=== PATIENT | male | born 1980 | race African-American/Black ===

== ENCOUNTER 2017-08-26 10:22 | Emergency (ER) | payer OTHER ==
[~2017-08-26] VITALS: Ht 193 cm; Wt 141.0 kg
[2017-08-26 10:36] VITALS: TEMP 36.7; Ht 193 cm; Wt 141.0 kg
[2017-08-26 11:15] VITALS: O2SAT 96
[2017-08-26 11:18] LABS: BASO % 0.4 %; BASO ABS # 0.04 K/uL (0-0.2); EOS % 2.1 %; EOS ABS # 0.21 K/uL (0-0.5); HEMATOCRIT 42.5 % (42-52); IG# 0.03 K/uL (0.00-0.02); LYMPH % 14.9 %; LYMPH ABS # 1.48 K/uL (1.2-3.4); MEAN CELL VOLUME 79.6 fL (80-100); MEAN CORPUSCULAR HEMOGLOBIN 28.1 pg (25-34); MEAN CORPUSCULAR HGB CONC 35.3 g/dl (32-36); MEAN PLATELET VOLUME 10.6 fL (7.4-10.4); MONO % 14.2 %; MONO ABS # 1.41 K/uL (0.11-0.59); NEUT % 68.1 %; NEUT ABS # 6.77 K/uL (1.4-6.5); PLATELET COUNT 194 K/uL (130-400); RED CELL DISTRIBUTION WIDTH CV 12.3 % (11.5-14.5); RED CELL DISTRIBUTION WIDTH SD 35.5 fL (36.4-46.3); WHITE BLOOD COUNT 9.94 K/uL (4.8-10.8)
--- NOTE | 2017-08-26 11:30 | DIAGNOSTIC IMAGING REPORT ---
CHEST ONE VIEW PORTABLE CLINICAL HISTORY: Pain with inspiration on L side, hemoptysis pain. Hemoptysis. COMPARISON STUDY: No previous studies for comparison. FINDINGS: Parenchymal infiltrate left base. Lungs otherwise appear clear. Diaphragms smooth. IMPRESSION: Infiltrate left base. The above report was generated using voice recognition software. It may contain grammatical, syntax or spelling errors. Electronically signed by: Arnav Farooq M.D. 08/26/2017 11:29 AM Dictated Date/Time: 08/26/2017 11:28 AM
[2017-08-26 11:37] LABS: ALBUMIN 3.8 gm/dl (3.4-5.0); ALT/SGPT 29 U/L (12-78); AST/SGOT 20 U/L (15-37); BLOOD UREA NITROGEN 13 mg/dl (7-18); CALCIUM 9.1 mg/dl (8.5-10.1); CARBON DIOXIDE 28 mmol/L (21-32); GLUCOSE 81 mg/dl (70-99); SODIUM 133 mmol/L (136-145)
[2017-08-26 11:42] LABS: ALKALINE PHOSPHATASE 60 U/L (45-117); TOTAL PROTEIN 9.1 gm/dl (6.4-8.2)
[2017-08-26] MEDS ORDERED: OPTIRAY 320 IV PRN (11:45)
--- NOTE | 2017-08-26 12:22 | DIAGNOSTIC IMAGING REPORT ---
(CHEST FOR PE) ANGIO WITH CT DOSE: 574.59 mGycm HISTORY: Chest pain dyspnea. Hemoptysis. TECHNIQUE: Multiaxial CT images of the chest were performed following the intravenous administration of contrast to evaluate the pulmonary arteries. Maximal intensity projection images were also obtained. A dose lowering technique was utilized adhering to the principles of ALARA. COMPARISON STUDY: None. FINDINGS: There is a normal caliber thoracic aorta with no evidence for dissection. There is no evidence for pulmonary embolus. No pleural effusions. No pneumothorax. The liver and spleen are unremarkable. No mediastinal or hilar lymphadenopathy. The central airways are patent. The lungs demonstrate a focal parenchymal infiltrate left lung base. Mild peripheral consolidation. Trace amount pleural fluid left base. IMPRESSION: 1. No evidence for pulmonary embolus. 2. Left lower lobe infiltrate with a trace amount of pleural fluid left base. The above report was generated using voice recognition software. It may contain grammatical, syntax or spelling errors. Electronically signed by: Arnav Farooq M.D. 08/26/2017 12:20 PM Dictated Date/Time: 08/26/2017 12:18 PM
[2017-08-26] MEDS ORDERED: ACETAMINOPHEN 325 MG TAB PO STA (12:34)
[2017-08-26] MEDS ORDERED: LEVOFLOXACIN 750 MG TAB PO STA (13:00)
--- NOTE | 2017-08-26 13:05 | EMERGENCY ROOM VISIT NOTE ---
History First contact with patient: 10:42 Chief Complaint: SHORTNESS OF BREATH Stated Complaint: PNEUMONIA Nursing Triage Summary: shortness of breath, back pain, increased bloody sputum cough. History of Present Illness The patient is a 37 year old male who presents to the Emergency Room via 2 correctional officers with complaints of "shortness of breath" the patient states that this past Wednesday he began with left-sided posterior rib pain. He notes that he felt sweaty, short of breath and had urinary frequency. He coughed up bloody sputum he notes that was dark in nature. This was witnessed by staff at the group home subjectively. It was stated that the chest x-ray may have showed a left lung infiltrate. Possible effusion. Patient denies any fever currently. He does notes pain in the back of his left ribs. No chest pain. Review of Systems A complete 10-point Review of Systems was discussed with the patient, with pertinent positives and negatives listed in the History of Present Illness. All remaining Review of Systems questions can be considered negative unless otherwise specified. Past Medical/Surgical History No pertinent. Family History No pertinent. Social History Smoking Status: Former Smoker Patient is currently incarcerated. Physical Exam Vital Signs Date Time Temp Pulse Resp B/P (MAP) Pulse Ox O2 Delivery O2 Flow Rate FiO2 08/26/17 13:19 93 18 156/110 98 Room Air 08/26/17 12:14 82 18 156/101 98 Room Air 08/26/17 11:15 86 08/26/17 11:15 96 Room Air 08/26/17 11:11 96 08/26/17 10:36 36.7 94 20 147/92 96 Room Air Physical Exam VITAL SIGNS - Vital signs and nursing notes were reviewed. Stable. GENERAL -37-year-old male appearing his stated age who is in no acute distress. Communicates well with provider and answers questions appropriately. SKIN - Without rashes. No meningeal or petechial rash. HEAD - NC/AT. EYES - PERRL with EOMI bilaterally. Sclera anicteric. EARS - No deformities of external structures noted on gross examination bilaterally. NOSE - Midline and without cyanosis. No epistaxis or purulent drainage noted. MOUTH/OROPHARYNX - Without perioral cyanosis. NECK - Neck with FROM. Supple to palpation. Now lymphadenopathy noted. No nuchal rigidity. LUNGS - Chest wall symmetric without accessory muscle use, intercostals retractions, or central cyanosis. Normal vesicular breath sounds CTA B/L. No wheezes, rales, or rhonchi appreciated. CARDIAC - RRR with S1/S2. No murmur, rubs, or gallops appreciated. ABDOMEN - Abdominal contour normal without pulsations or visible masses. BS normoactive all four quadrants. No tenderness, palpable masses, hepatosplenomegaly, or ascites noted. EXTREMITIES - No clubbing or peripheral cyanosis. No pretibial edema present. + 5/5 strength noted in UE/LE bilaterally. NEUROLOGIC - Cranial nerves II through XII grossly intact. Sensory intact to light touch throughout. PSYCH - A&O, and cooperates fully with examiner. Pt is very pleasant and interacts well with examiner. Medical Decision & Procedures ER Provider Diagnostic Interpretation: [~ rep ct add3]] CHEST ONE VIEW PORTABLE CLINICAL HISTORY: Pain with inspiration on L side, hemoptysis pain. Hemoptysis. COMPARISON STUDY: No previous studies for comparison. FINDINGS: Parenchymal infiltrate left base. Lungs otherwise appear clear. Diaphragms smooth. IMPRESSION: Infiltrate left base. The above report was generated using voice recognition software. It may contain grammatical, syntax or spelling errors. Electronically signed by: Arnav Farooq M.D. 08/26/2017 11:29 AM Dictated Date/Time: 08/26/2017 11:28 AM (CHEST FOR PE) ANGIO WITH CT DOSE: 574.59 mGycm HISTORY: Chest pain dyspnea. Hemoptysis. TECHNIQUE: Multiaxial CT images of the chest were performed following the intravenous administration of contrast to evaluate the pulmonary arteries. Maximal intensity projection images were also obtained. A dose lowering technique was utilized adhering to the principles of ALARA. COMPARISON STUDY: None. FINDINGS: There is a normal caliber thoracic aorta with no evidence for dissection. There is no evidence for pulmonary embolus. No pleural effusions. No pneumothorax. The liver and spleen are unremarkable. No mediastinal or hilar lymphadenopathy. The central airways are patent. The lungs demonstrate a focal parenchymal infiltrate left lung base. Mild peripheral consolidation. Trace amount pleural fluid left base. IMPRESSION: 1. No evidence for pulmonary embolus. 2. Left lower lobe infiltrate with a trace amount of pleural fluid left base. The above report was generated using voice recognition software. It may contain grammatical, syntax or spelling errors. Electronically signed by: Arnav Farooq M.D. 08/26/2017 12:20 PM Dictated Date/Time: 08/26/2017 12:18 PM Laboratory Results 08/26/17 11:00 Red Blood Count 5.34, Mean Corpuscular Volume 79.6, Mean Corpuscular Hemoglobin 28.1, Mean Corpuscular Hemoglobin Concent 35.3, Mean Platelet Volume 10.6, Neutrophils (%) (Auto) 68.1, Lymphocytes (%) (Auto) 14.9, Monocytes (%) (Auto) 14.2, Eosinophils (%) (Auto) 2.1, Basophils (%) (Auto) 0.4, Neutrophils # (Auto ) 6.77, Lymphocytes # (Auto) 1.48, Monocytes # (Auto) 1.41, Eosinophils # (Auto ) 0.21, Basophils # (Auto) 0.04 08/26/17 11:00 Test 08/26/17 11:00 White Blood Count 9.94 K/uL (4.8-10.8) Red Blood Count 5.34 M/uL (4.7-6.1) Hemoglobin 15.0 g/dL (14.0-18.0) Hematocrit 42.5 % (42-52) Mean Corpuscular Volume 79.6 fL (80-100) Mean Corpuscular Hemoglobin 28.1 pg (25-34) Mean Corpuscular Hemoglobin Concent 35.3 g/dl (32-36) Platelet Count 194 K/uL (130-400) Mean Platelet Volume 10.6 fL (7.4-10.4) Neutrophils (%) (Auto) 68.1 % Lymphocytes (%) (Auto) 14.9 % Monocytes (%) (Auto) 14.2 % Eosinophils (%) (Auto) 2.1 % Basophils (%) (Auto) 0.4 % Neutrophils # (Auto) 6.77 K/uL (1.4-6.5) Lymphocytes # (Auto) 1.48 K/uL (1.2-3.4) Monocytes # (Auto) 1.41 K/uL (0.11-0.59) Eosinophils # (Auto) 0.21 K/uL (0-0.5) Basophils # (Auto) 0.04 K/uL (0-0.2) RDW Standard Deviation 35.5 fL (36.4-46.3) RDW Coefficient of Variation 12.3 % (11.5-14.5) Immature Granulocyte % (Auto) 0.3 % Immature Granulocyte # (Auto) 0.03 K/uL (0.00-0.02) Prothrombin Time 10.4 SECONDS (9.0-12.0) Prothromb Time International Ratio 1.0 (0.9-1.1) Activated Partial Thromboplast Time 28.0 SECONDS (21.0-31.0) Partial Thromboplastin Ratio 1.1 Anion Gap 7.0 mmol/L (3-11) Est Creatinine Clear Calc Drug Dose 111.9 ml/min Estimated GFR () 74.4 Estimated GFR (Non- 64.2 BUN/Creatinine Ratio 9.2 (10-20) Calcium Level 9.1 mg/dl (8.5-10.1) Magnesium Level 2.3 mg/dl (1.8-2.4) Total Bilirubin 0.6 mg/dl (0.2-1) Aspartate Amino Transf (AST/SGOT) 20 U/L (15-37) Alanine Aminotransferase (ALT/SGPT) 29 U/L (12-78) Alkaline Phosphatase 60 U/L (45-117) Troponin I < 0.015 ng/ml (0-0.045) Total Protein 9.1 gm/dl (6.4-8.2) Albumin 3.8 gm/dl (3.4-5.0) Globulin 5.3 gm/dl (2.5-4.0) Albumin/Globulin Ratio 0.7 (0.9-2) Medications Administered Medications (Trade) Dose Ordered Sig/Tierney Route Start Time Stop Time Status Last Admin Dose Admin Acetaminophen (Tylenol Tab) 650 mg NOW STAT PO 08/26/17 12:34 08/26/17 12:35 DC 08/26/17 12:40 650 MG Levofloxacin (Levaquin Tab) 750 mg NOW STAT PO 08/26/17 13:00 08/26/17 13:01 DC 08/26/17 13:22 750 MG Medical Decision Patient was seen and evaluated as above. Review was performed of nursing notes and vital signs. After obtaining a thorough history and physical examination the above work up was performed. He presents with hemoptysis and left-sided rib pain. There is concern for potential PE given his history versus pneumonia. Chest x-ray represents pneumonia however other than the hemoptysis he has no evidence of pneumonia on exam there is no fever, or elevated white blood cell count. I did elect to obtain a CT scan of the patient's chest to rule out pulmonary infarct/PE. This was negative for PE and redemonstrated the pneumonia. He appears stable for outpatient management given his presentation here today with Levaquin. He was given Tylenol here for pain. The case was discussed with the attending physician. CBC reveals no leukocytosis. No concerning anemia. Coags normal. Chemistry reveals low sodium 133. The patient was educated upon management, had questions answered prior to discharge , and was discharged home in good condition. EKG reveals normal sinus rhythm per my interpretation. No evidence of [place] or PE. Case was discussed with the attending physician. In the evaluation and treatment of this patient the following differential diagnoses were entertained: Pneumonia, [place], PE, pericarditis, costochondritis, rib fracture, malignancy, among others. Impression Primary Impression: Pneumonia Departure Information Dispostion Home / Self-Care Condition GOOD Referrals Pavan MORTENSEN (PCP) Patient Instructions My [facility] Additional Instructions You have been treated in the Emergency Department left-sided rib pain which is suspected to be pneumonia. . Your were given the first dose of Levaquin here. We recommend this once daily for 5 days. For pain control, you can use the following [id number]-[id number] medicines (if >12 yo): - Regular strength (325mg/tab) Tylenol (acetaminophen) 2 tabs every 4-6 hours as needed. Do not exceed 12 tablets in a 24 hour period. Avoid taking more than 3 grams (3000 mg) of Tylenol per day. This includes any other sources of acetaminophen you may take on a regular basis. - Regular strength (200 mg/tab) Advil (ibuprofen) 1-2 tabs every 4-6 hours as needed. Do not exceed a dose of 3200 mg per day. To minimize your discomfort, you can hug a pillow while coughing or sneezing. You should schedule a follow-up appointment in 2-3 days with your Primary Care Provider for further evaluation and treatment of your pain. Return to the Emergency Department if your current symptoms worsen despite treatment course outlined above, or if you develop any of the following symptoms : intractable pain despite aforementioned treatment course, development of a wet cough, continued bloody cough, fever, chills, or increased shortness of breath.
[2017-08-26 13:19] VITALS: BP 156/110; PULSE 93; O2SAT 98
== END 2017-08-26 13:40 | disposition home or self-care (01) ==
LOC: C.EDB 10:24 → C.EDC 13:40
DX: J18.9 Pneumonia, unspecified organism (principal); Z87.891 Personal history of nicotine dependence

== ENCOUNTER → 2017-12-03 | Outpatient (CLI) | payer OTHER ==
[~2017-12-03] MED LIST: OPTIRAY 320 IV PRN
--- NOTE | 2017-12-03 09:31 | DIAGNOSTIC IMAGING REPORT ---
CHEST CT WITH CONTRAST CT DOSE: 1139.80 mGy.cm HISTORY: Abnormal chest CT. Follow-up. TECHNIQUE: Multiaxial CT images of the chest were performed following the intravenous administration of contrast. A dose lowering technique was utilized adhering to the principles of ALARA. COMPARISON: Chest CT 08/26/2017. FINDINGS: A few right apical blebs are noted. The largest measures 2.5 cm. No pneumothorax. No pleural effusions. The central airways are patent. Interval improvement in the left lower lobe consolidation. There are peripheral linear densities remaining within the left lower lobe posteriorly. This favors scarring. No new focal lung consolidations. Stable 3 mm nodular density within the right upper lobe on image 89. This is of doubtful clinical significance given the patient's age and small size. No suspicious lytic or blastic osseous lesions. The visualized liver, spleen, and adrenal glands are unremarkable. The heart is normal in size. No mediastinal or hilar lymphadenopathy. Normal caliber thoracic aorta. The main pulmonary arteries are patent. IMPRESSION: 1. Interval improved in the left lower lobe consolidation. A few peripheral linear scarlike densities persist within the left lower lobe. 2. The main pulmonary arteries are patent. The study was not performed as a CTA for the pulmonary arteries. Of note, in retrospect the prior study suggests the possibility of a left lower lobe pulmonary embolus. Therefore, the consolidation may have represented a pulmonary infarct. 3. These findings were discussed with the patient's physician, Angel Foreman, at 9:40 AM on 12/03/2017. Electronically signed by: Christopher Cabrales M.D. 12/03/2017 10:18 AM Dictated Date/Time: 12/03/2017 9:19 AM
== END | disposition home or self-care (01) ==
LOC: C.CTS 08:57
PROVIDERS: ATTEND Family Medicine
DX: I10 Essential (primary) hypertension (principal); R91.8 Other nonspecific abnormal finding of lung field; J45.20 Mild intermittent asthma, uncomplicated